=== PATIENT | male | born 1995 | race American Indian/Alaskan Native ===

== ENCOUNTER 2019-10-07 10:50 | Emergency (ER) | payer SELFPAY ==
--- NOTE | 2019-10-07 11:27 | Emergency Department Report ---
Blank Doc - Documentation Documentation: 24-year-old male that presents with perianal abscess. This initial assessment/diagnostic orders/clinical plan/treatment(s) is/are subject to change based on patient's health status, clinical progression and re- assessment by fellow clinical providers in the ED. Further treatment and workup at subsequent clinical providers discretion. Patient/guardians urged not to elope from the ED as their condition may be serious if not clinically assessed and managed. Initial orders include: 1- Patient sent to [facility] for further evaluation and treatment
[2019-10-07 15:20] VITALS: BP 113/71
[2019-10-07] MEDS ORDERED: LIDOCAINE 1%/EPINEPHRINE 1:100,000 VIAL (20 ML) INFILTRATI ONE (15:33)
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
== END 2019-10-07 16:40 | disposition home or self-care (01) ==
LOC: ED 10:50
DX: K64.5 Perianal venous thrombosis (principal)
CPT/HCPCS: 99282

== ENCOUNTER 2021-03-08 07:40 | Emergency (ER) | payer SELFPAY ==
--- NOTE | 2021-03-08 08:58 | Emergency Department Report ---
Chief Complaint: Abdominal Pain Stated Complaint: BODY PROBLEMS Time Seen by Provider: 03/08/21 08:51 - HPI History of Present Illness: Chief complaint: I have constipation and a hemorrhoid. I just want to get checked out. HPI: This is a 25-year-old male without significant past medical history who has had 5 to 6 days of constipation. Most recent bowel movement this morning. He states when he strains that his "hemorrhoid comes out". However now the hemorrhoid appears to be internalized. He just want to make sure nothing was wrong. Denies any pain. Denies any vomiting. Denies any fever. He has intact appetite. - ROS Review of Systems: Patient denies fever, shortness of breath, diarrhea. He denies rectal bleeding - Exam Vital Signs: Vital Signs 03/08/21 03/08/21 07:52 08:54 Temperature 98.2 F Pulse Rate 81 Respiratory 16 16 Rate Blood Pressure 141/81 O2 Sat by Pulse 99 97 Oximetry Physical Exam: Well-appearing gentleman, stable vital signs. No acute distress. No respiratory stress. Soft abdomen nontender nondistended no guarding. Exams are without difficulty MSE screening note: Medical screening exam performed completed. Patient politely declined rectal exam which I feel is appropriate. Patient does not have a life threatening or limb threatening medical condition. I referred patient to general surgeon and outpatient medicine physician. ED Disposition for MSE Clinical Impression: Constipation, Hemorrhoid Disposition: Z-07 MED SCREENING EXAM-LEFT Condition: Stable Instructions: Constipation, Adult, [id number], Hemorrhoids, [id number] Referrals: OLIVA ROWAN MD [Staff Physician] - as needed FATMATA ESCOTO DO [Staff Physician] - as needed
[2021-03-08 09:06] VITALS: BP 150/84
== END 2021-03-08 09:10 | disposition left against medical advice (07) ==
LOC: ED 07:40
DX: K64.9 Unspecified hemorrhoids (principal); K59.00 Constipation, unspecified; Z53.21 Procedure and treatment not carried out due to patient leaving prior to being seen by health care provider